=== PATIENT | female | born 1980 | race Caucasian/White ===

== ENCOUNTER 2016-11-09 06:08 | Emergency (ER) | payer MEDICAID ==
[~2016-11-09] VITALS: Ht 175.2 cm; Wt 72.6 kg
[~2016-11-09 06:08] MED LIST: HYDR25T PO; OMEPRAZOLE40 MG PO; ZYRTEC10 M3 PO
[2016-11-09] MEDS ORDERED: ZOLOFT100 MG PO (06:19)
[2016-11-09] MEDS ORDERED: ABILIFY5 MG PO (06:19)
[2016-11-09] MEDS ORDERED: PROTONIX40 MG PO (06:20)
[2016-11-09 06:45] LABS: BILIRUBIN NEGATIVE (NEGATIVE); BLOOD NEGATIVE (NEGATIVE); CLARITY SL CLOUDY (CLEAR); COLOR YELLOW (YELLOW); GLUCOSE NEGATIVE (NEGATIVE); KETONE NEGATIVE (NEGATIVE); LEUKO ESTERASE NEGATIVE (NEGATIVE); NITRITE NEGATIVE (NEGATIVE); PROTEIN NEGATIVE (NEGATIVE); UROBILINOGEN 0.2 E.U./dl (0.2-1.0)
[2016-11-09 06:55] LABS: BASO # 0.1 10*3/uL (0.0-0.1); BASO % 0.8 % (0.0-1.0); EOS # 0.5 10*3/uL (0.0-0.4); EOS % 5.6 % (1.0-4.0); HEMATOCRIT 36.3 % (37.0-47.0); HEMOGLOBIN 12.6 g/dl (12.0-16.0); LYMPH # 2.3 10*3/uL (1.3-4.4); LYMPH % 25.5 % (27.0-41.0); MEAN CELL VOLUME 101.4 fl (81.0-99.0); MEAN CORPUSCULAR HGB 35.2 pg (27.0-31.0); MEAN CORPUSCULAR HGB CONC 34.7 g/dl (33.0-37.0); MEAN PLATELET VOLUME 9.6 fl (9.6-12.3); MONO # 0.4 10*3/uL (0.1-1.0); MONO % 4.8 % (3.0-9.0); NEUT # 5.8 10*3/uL (2.3-7.9); NEUT % 62.9 % (47.0-73.0); PLATELET COUNT AUTOMATED 188 10*3/uL (130-400); RED BLOOD COUNT 3.58 10*6/uL (4.10-5.10); RED CELL DISTRI WIDTH 12.6 % (0-14.5); WHITE BLOOD COUNT 9.1 10*3/uL (4.8-10.8)
[2016-11-09 07:04] LABS: PROTHROMBIN TIME 10.2 SECONDS (9.0-12.4)
[2016-11-09 07:11] LABS: ALBUMIN 3.7 gm/dl (3.1-4.5); ALKALINE PHOSPHATASE 141 U/L (45-117); BILIRUBIN, TOTAL 0.7 mg/dl (0.2-1.0); BUN 11 mg/dl (7-24); C-REACTIVE PROTEIN < 0.29 MG/DL (0-0.3); CARBON DIOXIDE 24 mmol/L (21-32); CHLORIDE 104 mmol/L (98-107); EST GLOM FILT AFRICAN AMERICAN > 60 ml/min; GLUCOSE 109 mg/dL (65-99); MAGNESIUM 1.5 mg/dL (1.5-2.1); POTASSIUM 3.6 mmol/L (3.5-5.1); SGOT/AST 186 IU/L (3-35); SGPT/ALT 95 U/L (12-78); SODIUM 137 mmol/L (136-145); TOTAL PROTEIN 7.1 gm/dL (6.4-8.2)
[2016-11-09 07:27] LABS: BACTERIA 1+; URINE REFLEX COMMENT NO (NO)
[2016-11-09] MEDS ORDERED: HYDROCODONE BIT1 T11 PO ×2 (08:04→08:09)
[2016-11-09] MEDS ORDERED: Motrin,Rufen800 MG PO ×2 (08:04→08:09)
== END 2016-11-09 08:39 | disposition home or self-care (01) ==
LOC: ED 06:08
PROVIDERS: Emergency Medicine Emergency Medical Services
DX: S22.32XA Fracture of one rib, left side, initial encounter for closed fracture (principal); I48.91 Unspecified atrial fibrillation; F41.9 Anxiety disorder, unspecified; F32.9 Major depressive disorder, single episode, unspecified; F12.10 Cannabis abuse, uncomplicated; Z88.0 Allergy status to penicillin; Z88.6 Allergy status to analgesic agent; W18.30XA Fall on same level, unspecified, initial encounter; Y93.89 Activity, other specified; Y92.9 Unspecified place or not applicable; Y99.9 Unspecified external cause status

== ENCOUNTER 2017-06-17 12:41 | Inpatient (IN) | payer SELFPAY ==
[~2017-06-17] VITALS: Ht 170.1 cm; Wt 73.6 kg
[~2017-06-17 12:41] MED LIST changes: +ABILIFY5 MG PO; +HYDROCODONE BIT1 T11 PO; +Motrin,Rufen800 MG PO; +PROTONIX40 MG PO; +ZOLOFT100 MG PO
[2017-06-17 12:47] VITALS: BP 143/97
[2017-06-17 13:32] LABS: BASO # 0.1 10*3/uL (0.0-0.1); BASO % 0.7 % (0.0-1.0); EOS # 0.2 10*3/uL (0.0-0.4); EOS % 2.6 % (1.0-4.0); HEMATOCRIT 39.5 % (37.0-47.0); HEMOGLOBIN 13.8 g/dl (12.0-16.0); LYMPH # 1.6 10*3/uL (1.3-4.4); LYMPH % 22.7 % (27.0-41.0); MEAN CELL VOLUME 103.1 fl (81.0-99.0); MEAN CORPUSCULAR HGB CONC 34.9 g/dl (33.0-37.0); MONO # 0.4 10*3/uL (0.1-1.0); MONO % 5.1 % (3.0-9.0); NEUT % 68.3 % (47.0-73.0); PLATELET COUNT AUTOMATED 137 10*3/uL (130-400); RED BLOOD COUNT 3.83 10*6/uL (4.10-5.10); RED CELL DISTRI WIDTH 13.1 % (0-14.5); WHITE BLOOD COUNT 7.2 10*3/uL (4.8-10.8)
[2017-06-17 13:41] LABS: BILIRUBIN 3+ (NEGATIVE); BLOOD 1+ (NEGATIVE); CLARITY SL CLOUDY (CLEAR); COLOR RED (YELLOW); GLUCOSE NEGATIVE (NEGATIVE); KETONE 1+ (NEGATIVE); NITRITE POSITIVE (NEGATIVE); PH 6.5 (5.0-9.0); SPECIFIC GRAVITY 1.025 (1.005-1.030); UROBILINOGEN >= 8.0 E.U./dl (0.2-1.0)
[2017-06-17 13:47] LABS: LEUKO ESTERASE 2+ (NEGATIVE)
[2017-06-17 13:48] LABS: RBC TNTC rbc/hpf (0-2)
--- NOTE | 2017-06-17 13:49 | NUR ---
LAB CALLED AND ASKED ABOUT URINE SPECIMEN. LAB (CARLOS) STATES HE DID NOT "SEE THE ORDER" AND WOULD RUN SPECIMAN NOW.
[2017-06-17 14:03] LABS: ALBUMIN 3.2 gm/dl (3.1-4.5); ALKALINE PHOSPHATASE 237 U/L (45-117); BUN 7 mg/dl (7-24); CHLORIDE 96 mmol/L (98-107); CREATININE 0.88 mg/dL (0.55-1.02); LIPASE 132 U/L (73-393); POTASSIUM 2.8 mmol/L (3.5-5.1); SGOT/AST 185 IU/L (3-35); SGPT/ALT 75 U/L (12-78); SODIUM 135 mmol/L (136-145)
--- NOTE | 2017-06-17 14:20 | NUR ---
PT AWARE OF POSSIBLE ADMITTANCE AND WHY. SIGNIFICANT OTHER AT BEDSIDE.
--- NOTE | 2017-06-17 14:52 | NUR ---
PT AWARE OF NPO STATUS UNTIL CT SCAN IS PERFORMED
[2017-06-17 15:05] VITALS: BP 143/97
--- NOTE | 2017-06-17 15:05 | NUR ---
A 36, admitted to 4E, under the services of EDGAR Groves DO with a diagnosis of UTI, ELEVATED BLOOD PRESSURE. Chief complaint is MULTIPLE COMPLAINTS. Patient arrived via STRETCHER from ER. Monitor applied. Initial assessment completed. Vital signs taken and recorded. EDGAR GROVES DO notified of admission to the unit. Orders received. See assessment for past medical history, medications and allergies. Patient and/or family oriented to unit. visitation policy reviewed. Clothing/patient valuable form completed. DEANNE SALAZAR
[2017-06-17 15:50] VITALS: BP 141/92
--- NOTE | 2017-06-17 18:20 | NUR ---
PT NOT TOLERATING POTASSIUM, NOTIFIED OK TO STOP POTASSIUM AT THIS TIME.
--- NOTE | 2017-06-17 19:30 | NUR ---
IN TO SEE PT, ASSESSMENT COMPLETE. NO S/S OF DISTRESS. RESPIRATIONS EASY AND UNLABORED. NO SOB NOTED. NORMOACTIVE BSX4, LUNGS CTA. HRR ON MONITOR, 83 PER CM. IV SITES PATENT, DRESSINGS DRY AND IN TACT. NO NEW ABNORMALITIES NOTED. ENCOURAGED USE OF CALL LIGHT.
[2017-06-17 20:00] VITALS: BP 111/72
--- NOTE | 2017-06-17 20:30 | NUR ---
PT C/O LOWER BACK PAIN. TORADOL ADMINISTERED PER ORDER FOR PAIN. WILL MONITOR PT FOR EFFECTIVENESS. ENCOURAGED USE OF CALL LIGHT.
--- NOTE | 2017-06-17 21:30 | NUR ---
TORADOL EFFECTIVE PER PT. TORADOL TOLERATED WELL.
[2017-06-18] VITALS: BP 117/77
--- NOTE | 2017-06-18 00:50 | NUR ---
PT REQUESTS SOMETHING TO HELP HER SLEEP. RESTORIL ADMINISTERED AT THIS TIME. WILL MONITOR FOR EFFECTIVENESS. ENCOURAGED USE OF CALL LIGHT FOR ANY NEEDS/CONCERNS.
--- NOTE | 2017-06-18 01:30 | NUR ---
COLLECTED URINE FOR TRICHOMONAS URINE RAH CULTURE. NOTIFIED LAB THAT URINE HAD BEEN COLLECTED AND LAB STAFF STATED THAT URINE IS ALREADY COLLECTED FOR THAT TEST AND THAT ANOTHER IS NOT NEEDED AT THIS TIME.
--- NOTE | 2017-06-18 01:50 | NUR ---
RESTORIL EFFECTIVE. PT RESTING IN BED, RESPIRATIONS EASY.
--- NOTE | 2017-06-18 02:00 | NUR ---
IV SITE IN LAC DISCONTINUED AT THIS TIME DUE TO EDEMATOUS AND REDDENED APPEARANCE. PT STATES THAT IV SITE IS PAINFUL. IV SITE RESTARTED IN PT LEFT HAND. TOLERATED WELL. GOOD BLOOD RETURN AND FLUSHING WELL. FLUIDS HOOKED UP TO NEW SITE, NO PROBLEMS NOTED.
--- NOTE | 2017-06-18 04:00 | NUR ---
NOT AWAKENED PER POLICY. RESPIRATIONS EASY AND UNLABORED. NO S/S OF DISTRESS. IV FLUIDS RUNNING PER ORDER. IV SITE PATENT, DRESSING DRY AND IN TACT.
[2017-06-18 07:28] LABS: ALBUMIN 2.5 gm/dl (3.1-4.5); ALKALINE PHOSPHATASE 187 U/L (45-117); BUN 5 mg/dl (7-24); CHLORIDE 103 mmol/L (98-107); CHOLESTEROL 172 mg/dL (<200); CREATININE 0.62 mg/dL (0.55-1.02); HDL CHOLESTEROL 70 mg/dl (40-60); LDL CHOLESTEROL 75 mg/dL (9-159); POTASSIUM 3.1 mmol/L (3.5-5.1); SGOT/AST 155 IU/L (3-35); SGPT/ALT 59 U/L (12-78); SODIUM 138 mmol/L (136-145); TOTAL PROTEIN 5.5 gm/dL (6.4-8.2); TRIGLYCERIDES 134 mg/dl (<150); VLDL CHOLESTEROL 27 mg/dL (6-40)
[2017-06-18 07:33] LABS: FREE T4 0.76 ng/dl (0.76-1.46)
[2017-06-18 07:35] LABS: HEMATOCRIT 40.3 % (37.0-47.0); MEAN CELL VOLUME 104.9 fl (81.0-99.0); MEAN CORPUSCULAR HGB 36.5 pg (27.0-31.0); MEAN CORPUSCULAR HGB CONC 34.7 g/dl (33.0-37.0); MEAN PLATELET VOLUME 11.6 fl (9.6-12.3); PLATELET COUNT AUTOMATED 108 10*3/uL (130-400); RED BLOOD COUNT 3.84 10*6/uL (4.10-5.10); WHITE BLOOD COUNT 6.5 10*3/uL (4.8-10.8)
[2017-06-18 07:39] LABS: ATYPICAL LYMPHS 1 % (0-0); PLATELET SUFFICIENCY LOW (NORMAL); TOTAL CELLS COUNTED 100 #CELLS
[2017-06-18 08:00] VITALS: BP 121/86
[2017-06-18 08:09] LABS: ACT PARTIAL THROMBO TIME 25.7 SECONDS (20.8-31.5)
--- NOTE | 2017-06-18 09:00 | NUR ---
Pie Crimping Machine Operator in to talk to patient. Patient states lives at home with her . There are 2 flights of steps in the home. Physician: Dr. Fallon [facility]: [facility] Home health services: none Patient's level of ADLs: INDEPENDENT Patient has working utilities: yes DME: none Follow-up physician's appointment after d/c: will be made by hospitalist nurse director upon discharge Does patient want to access PORTAL?: no Discharge plan discussed with patient. She lives at home with her . There are 2 flights of steps in the home. She is independent in her ADLs and ambulation. She denies any home needs. When medically stable she will be discharged home. ANNALISE PALMER
--- NOTE | 2017-06-18 09:51 | NUR ---
PATIENT REQUESTED AND RECIEVED TORADOL FOR BACK PAIN 12/19 AT 0867. [id number] PATIENT STATED PAIN A 2-09/18. TORADOL EFFECTIVE.
[2017-06-18 09:52] LABS: VITAMIN D, 25-HYDROXY 6.2 ng/mL (30-100)
--- NOTE | 2017-06-18 11:00 | NUR ---
PATIENT REQUESTED AND GIVEN ZOFRAN FOR NAUSEA. WILL MONITOR.
[2017-06-18 12:00] VITALS: BP 118/83
--- NOTE | 2017-06-18 12:09 | NUR ---
ZOFRAN EFFECTIVE PER PATIENT.
--- NOTE | 2017-06-18 15:00 | NUR ---
ASSUMED CARE OF PATIENT. PATIENT IS COOPERATIVE AND PLEASANT. SHE IS STABLE, AND CURRENTLY ASKING TO GET A SHOWER. SHE IS IN STABLE CONDITION. SECURED IV SITE WITH LARGER TEGADERM FOR PATIENT TO GET WASHED UP.
[2017-06-18 16:00] VITALS: BP 131/81
--- NOTE | 2017-06-18 19:30 | NUR ---
PT RECEIVED NUBAIN FOR PAIN IN BACK/SIDES RATES AT A 610.
[2017-06-18 20:00] VITALS: BP 125/86
--- NOTE | 2017-06-18 21:46 | NUR ---
PATIENT STATES PAIN MEDICATION WAS INEFFECTIVE. RECEIVED RESTORIL FOR SLEEP AID.
[2017-06-19] VITALS: BP 112/73
[2017-06-19 05:09] LABS: HEPATITIS B SURFACE AG Negative (Negative); HEPATITIS C VIRUS ANTIBODY <0.1 s/co (0.0-0.9)
[2017-06-19 06:03] LABS: BASO # 0.1 10*3/uL (0.0-0.1); BASO % 0.8 % (0.0-1.0); EOS # 0.3 10*3/uL (0.0-0.4); EOS % 5.2 % (1.0-4.0); HEMATOCRIT 38.8 % (37.0-47.0); HEMOGLOBIN 12.9 g/dl (12.0-16.0); LYMPH # 1.3 10*3/uL (1.3-4.4); LYMPH % 20.5 % (27.0-41.0); MEAN CELL VOLUME 107.8 fl (81.0-99.0); MEAN CORPUSCULAR HGB 35.8 pg (27.0-31.0); MEAN CORPUSCULAR HGB CONC 33.2 g/dl (33.0-37.0); MEAN PLATELET VOLUME 11.5 fl (9.6-12.3); MONO # 0.4 10*3/uL (0.1-1.0); MONO % 5.5 % (3.0-9.0); NEUT # 4.4 10*3/uL (2.3-7.9); NEUT % 67.5 % (47.0-73.0); PLATELET COUNT AUTOMATED 113 10*3/uL (130-400); RED CELL DISTRI WIDTH 12.6 % (0-14.5); WHITE BLOOD COUNT 6.6 10*3/uL (4.8-10.8)
--- NOTE | 2017-06-19 06:40 | NUR ---
PT RECEIVED NUBAIN FOR PAIN RATED 5/10 IN BACK AND SIDES.
[2017-06-19 06:55] LABS: ALBUMIN 2.5 gm/dl (3.1-4.5); ALKALINE PHOSPHATASE 188 U/L (45-117); BUN 3 mg/dl (7-24); CHLORIDE 101 mmol/L (98-107); CREATININE 0.64 mg/dL (0.55-1.02); SGOT/AST 138 IU/L (3-35); SGPT/ALT 57 U/L (12-78); SODIUM 138 mmol/L (136-145); TOTAL PROTEIN 5.8 gm/dL (6.4-8.2)
[2017-06-19 07:02] LABS: POTASSIUM 3.3 mmol/L (3.5-5.1)
--- NOTE | 2017-06-19 07:06 | NUR ---
PATIENT STATES THAT RESTORIL WAS INEFFECTIVE LAST NIGHT AND THAT SHE SLEPT ON AND OFF THROUGHTOUT THE NIGHT.
--- NOTE | 2017-06-19 07:45 | NUR ---
DR ZUNIGA HERE AND SAW THE PATIENT WITH RN PRESENT. PT REQUESTING PAIN MEDICATION THAT "WORKS LIKE DILAUDED". ALSO SAID THAT SHE WANTS TO GO HOME. SAID THAT DRAINAGE INCREASED AFTER IVF STOPPED BUT SHE DOESN'T WANT THEM RESTARTED SO SHE CAN GO HOME AND "BE IN PAIN". WHEN ASKED IF HAVING BACK PAIN SHE ALSO SAID YES AND TENDER EVERYWHERE IF TOUCHED. HEP LOCK TO RIGHT HAND REINFORCED WITH TAPE. IV ANTIBIOTICS EXPLAINED & TOLD WOULD SWITCH HER TO ORAL WHEN CULTURE RESULTS COMPLETED.
[2017-06-19 08:00] VITALS: BP 109/60
--- NOTE | 2017-06-19 09:50 | NUR ---
MED ICATED WITH VISTARIL FOR ANXIETY & TORADOL FOR KIDNEY PAIN. EXPLAINED URINE CULTURE RESULTS & PROPER HYGIENE, WIPING, FLUIDS, CLEANING, ETC.
--- NOTE | 2017-06-19 10:37 | NUR ---
SLEEPING AFTER MEDICATED
[2017-06-19] MEDS ORDERED: DOXYCYCLINE100 M3 PO (11:11)
--- NOTE | 2017-06-19 11:56 | NUR ---
Discharge instructions reviewed with patient/family. Patient receptive and verbalizes understanding. Follow-up care arranged. Written instructions given to patient/family. Hep Lock discontinued. Site asymptomatic. Pressure applied. Sterile dressing applied. ABRAHAN THOMPSON
--- NOTE | 2017-06-19 12:50 | NUR ---
PATIENT LEFT WITH BELONGINGS.
== END 2017-06-19 12:50 | disposition home or self-care (01) | DRG 872 ==
LOC: ED 12:41 → EDHOLD 14:25 → 4E 14:25
PROVIDERS: Internal Medicine; Nurse Practitioner Family; Registered Nurse; ADMIT Internal Medicine
DX: A41.9 Sepsis, unspecified organism (principal); E87.8 Other disorders of electrolyte and fluid balance, not elsewhere classified; K76.0 Fatty (change of) liver, not elsewhere classified; N39.0 Urinary tract infection, site not specified; D72.810 Lymphocytopenia; E87.6 Hypokalemia; R74.0 Nonspecific elevation of levels of transaminase and lactic acid dehydrogenase [LDH]; R73.9 Hyperglycemia, unspecified; D75.89 Other specified diseases of blood and blood-forming organs; R82.4 Acetonuria; R80.9 Proteinuria, unspecified; F41.9 Anxiety disorder, unspecified; I48.91 Unspecified atrial fibrillation; R03.0 Elevated blood-pressure reading, without diagnosis of hypertension; N20.0 Calculus of kidney; F43.10 Post-traumatic stress disorder, unspecified; F17.210 Nicotine dependence, cigarettes, uncomplicated; Z88.0 Allergy status to penicillin; Z88.6 Allergy status to analgesic agent; Z91.040 Latex allergy status; Z79.899 Other long term (current) drug therapy